=== PATIENT | male | born 1995 | race American Indian/Alaskan Native ===

== ENCOUNTER 2017-10-11 21:34 | Emergency (ER) | payer SELFPAY ==
[2017-10-11 21:41] VITALS: BP 129/79; PULSE 69; RESP 16; TEMP 98.8; O2SAT 99
[2017-10-11] MEDS ORDERED: cefTRIAXone (Rocephin) 250 mg Inj IM STA (22:06)
--- NOTE | 2017-10-11 22:08 | C.PDOC ---
History Of Present Illness 22 year old male presents to ED requesting testing and treatment of STD. He states his girlfriend recently tested and diagnosed with trichomoniasis. Patient states he wants to be tested. He denies any penile pain or discharge, testicular pain, swelling, rash, or other associated complaints. Time Seen by Provider: 10/11/17 21:48 Chief Complaint (Nursing): Male Genitourinary History Per: Patient History/Exam Limitations: no limitations Past Medical History Reviewed: Historical Data, Nursing Documentation, Vital Signs Vital Signs: Last Vital Signs Temp 98.8 F 10/11/17 21:37 Pulse 69 10/11/17 21:37 Resp 16 10/11/17 21:37 BP 129/79 10/11/17 21:37 Pulse Ox 99 10/11/17 22:12 - Medical History PMH: No Chronic Diseases Surgical History: No Surg Hx Family History: States: No Known Family Hx - Social History Hx Alcohol Use: No Hx Substance Use: No Review Of Systems Except As Marked, All Systems Reviewed And Found Negative. Genitourinary: Negative for: Dysuria, Penile Discharge, Scrotal Pain, Rash, Penile Pain Physical Exam - Physical Exam Appears: Well, Non-toxic, No Acute Distress Skin: Warm, Dry Head: Atraumatic, Normacephalic Eye(s): bilateral: Normal Inspection Nose: Normal Oral Mucosa: Moist Neck: Normal ROM Chest: Symmetrical Cardiovascular: Rhythm Regular, No Murmur Respiratory: Normal Breath Sounds, No Wheezing Gastrointestinal/Abdominal: Soft, No Tenderness, No Distention, No Guarding Back: Normal Inspection, No CVA Tenderness Male Genital: Normal Inspection, No Testicular Tenderness, No Testicular Swelling, No Scrotal Swelling, Circumcised Extremity: Bilateral: Atraumatic, Normal ROM Neurological/Psych: Oriented x3, Normal Speech ED Course And Treatment O2 Sat by Pulse Oximetry: 99 Medical Decision Making Medical Decision Making: exam with male sash sticker Cory Garibay Urine collected and sent to lab Will treat for STI with Rocephin and Zithromax Rx given. Patient instructed to follow up with STD clinic Disposition Counseled Patient/Family Regarding: Diagnosis, Need For Followup, Rx Given - Disposition Referrals: [facility] [Outside] Disposition: HOME/ ROUTINE Disposition Time: 22:18 Condition: GOOD Additional Instructions: You have been treated for STI with Rocephin and Zithromax Treatment for Trich is Flagyl 500mg twice a day for 7 days. Caution, should not drink alcohol when taking this medication. Follow up in the clinic Prescriptions: metroNIDAZOLE [Flagyl] 500 mg PO BID 7 Days #14 tab Instructions: Trichomoniasis (ED), Sexually Transmitted Diseases (ED), Metronidazole (By mouth) Forms: [facility] (Turkmen), STD Clinic - POA Present On Arrival: None - Clinical Impression Clinical Impression: STD exposure
[2017-10-11 22:27] LABS: SQUAMOUS EPITHIAL 1 /hpf (0-5); URINE BILIRUBIN NEGATIVE (NEGATIVE); URINE BLOOD NEGATIVE (NEGATIVE); URINE CLARITY Hazy (Clear); URINE COLOR Yellow (YELLOW); URINE GLUCOSE (UA) NORMAL (Normal); URINE LEUKOCYTE ESTERASE 2+ Leu/uL (Negative); URINE NITRATE NEGATIVE (NEGATIVE); URINE PROTEIN 1+ mg/dL (NEGATIVE)
== END 2017-10-11 22:47 | disposition home or self-care (01) ==
LOC: C.ER 21:34
DX: Z20.2 Contact with and (suspected) exposure to infections with a predominantly sexual mode of transmission (principal)
CPT/HCPCS: 81001; 87491; 87591; 96372; 99283; J0696

== ENCOUNTER 2018-01-13 21:00 | Emergency (ER) | payer SELFPAY ==
[2018-01-13 21:41] VITALS: BP 121/60; PULSE 72; RESP 18; TEMP 98.5; O2SAT 96
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
[2018-01-13] MEDS ORDERED: Naproxen 550 mg Tab PO STA (23:14)
[2018-01-13] MEDS ORDERED: Naproxen 550 mg Tab PO ONE (23:20)
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
== END 2018-01-14 00:05 | disposition home or self-care (01) ==
LOC: SUPCPDRO 21:00 → C.ER 21:00
DX: J93.9 Pneumothorax, unspecified (principal)